=== PATIENT | male | born 1950 | race Caucasian/White ===

== ENCOUNTER 2020-09-20 12:55 | Observation (INO) | payer OTHER, MEDICARE ==
[~2020-09-20] VITALS: Ht 180.3 cm; Wt 99.1 kg
[2020-09-20] VITALS (13 sets, daily range): BP systolic 122–147; BP diastolic 65–90
[2020-09-20 13:43] LABS: BASOPHILS % (AUTO) 0.3 % (0-1); EOSINOPHILS # (AUTO) 0.1 X10'3 (0-0.9); EOSINOPHILS % (AUTO) 0.4 % (0-6); HEMOGLOBIN 13.4 g/dl (14.0-17.9); LYMPHOCYTES # (AUTO) 1.2 X10'3 (1.1-4.8); LYMPHOCYTES % (AUTO) 10.3 % (21-51); MEAN CORPUSCULAR HEMOGLOBIN 31.6 PG (27.0-31.0); MEAN CORPUSCULAR HGB CONC 33.5 g/dL (33.0-36.5); MEAN CORPUSCULAR VOLUME 94.3 FL (78-98); MONOCYTES # (AUTO) 0.7 X10'3 (0-0.9); MONOCYTES % (AUTO) 6.2 % (2-12); NEUTROPHILS # (AUTO) 9.9 X10'3 (1.8-7.7); NEUTROPHILS % (AUTO) 82.8 % (42-75); PLATELET COUNT 198 X10'3 (140-440); RED BLOOD COUNT 4.24 X10'6 (4.70-6.10); RED CELL DISTRIBUTION WIDTH 14.8 % (11.5-14.5); WHITE BLOOD COUNT 11.9 X10'3 (4.5-11.0)
[2020-09-20 13:59] LABS: ALANINE AMINOTRANSFERASE 42 U/L (12-78); ALBUMIN 3.4 G/DL (3.4-5.0); ALKALINE PHOSPHATASE 66 IU/L (46-116); ANION GAP 12 (8-16); ASPARTATE AMINO TRANSFERASE 26 U/L (10-37); BILIRUBIN,TOTAL 0.7 MG/DL (0.1-1.0); BLOOD UREA NITROGEN 16 MG/DL (7-18); BUN/CREATININE RATIO 16.2 (5.4-32.0); CALCIUM 8.6 MG/DL (8.5-10.1); CHLORIDE 104 MMOL/L (99-107); CREATININE 0.99 MG/DL (0.60-1.10); GLUCOSE 133 MG/DL (70-104); POTASSIUM 3.9 MMOL/L (3.5-5.1); SODIUM 140 MMOL/L (135-145); TOTAL CARBON DIOXIDE 23.9 MMOL/L (24-32); TOTAL PROTEIN 6.8 G/DL (6.4-8.2); eGFR 75 ML/MIN
[2020-09-20] MEDS ORDERED: ondansetron/PF 4mg/2ml inj IV ONE (14:05)
[2020-09-20] MEDS ORDERED: morphine 4 MG/ML inj SYRINge IV PRN ×2 (14:05→16:35)
--- NOTE | 2020-09-20 14:14 | NUR ---
TO CT VIA [facility]
[2020-09-20 14:15] LABS: LIPASE 126 U/L (73-393)
[2020-09-20 14:22] LABS: CLARITY,URINE CLEAR (Clear); COLOR,URINE YELLOW (Yellow); GLUCOSE, URINE NEGATIVE (Neg); KETONES,URINE NEGATIVE (Neg); LEUKOCYTE ESTERASE ,URINE NEGATIVE (Neg); NITRITES, URINE NEGATIVE (Neg); OCCULT BLOOD,URINE TRACE-INTACT (Neg); PROTEIN,URINE NEGATIVE (Neg); UROBILINOGEN,URINE 0.2 E.U/dL (0.2-1.0)
[2020-09-20] MEDS ORDERED: ALLO300T2 PO (14:22)
[2020-09-20] MEDS ORDERED: ALOG25TA PO (14:22)
--- NOTE | 2020-09-20 14:23 | NUR ---
back from ct
[2020-09-20 14:29] LABS: UA COLLECTION TYPE URINAL
[2020-09-20 14:33] LABS: BACTERIA,URINE FEW /HPF (Neg); SQUAMOUS EPITHELIAL CELL,UR FEW /LPF (FEW); WBC,URINE 0-4 /HPF (0-4)
[2020-09-20] MEDS ORDERED: IPRA3AMP31 IH (14:38)
[2020-09-20] MEDS ORDERED: piperacillin/tazo 3.375gm/50ml 50 ML IV ONE (15:10)
[2020-09-20 15:33] LABS: OCCULT BLOOD STOOL NEGATIVE (Neg)
--- NOTE | 2020-09-20 16:09 | NUR ---
ODALYS [phone]
--- NOTE | 2020-09-20 16:10 | NUR ---
HALIE FREEMAN [phone]
[2020-09-20] MEDS ORDERED: morphine 2 MG/ML inj. syringe IV PRN (16:35)
[2020-09-20] MEDS ORDERED: meperidine/PF 25mg/ml syringe IV PRN ×3 (16:35)
[2020-09-20] MEDS ORDERED: ondansetron/PF 4mg/2ml inj IV PRN ×2 (16:35→19:15)
[2020-09-20] MEDS ORDERED: proCHLORperazine 10 MG/2 ml inj IV PRN (16:35)
[2020-09-20] MEDS ORDERED: ringers solution, lacted 1,000 ML IV SCH (16:35)
[2020-09-20] MEDS ORDERED: BUPIVAcaine/PF 2.5 mg/ml (0.25%) 30ml vial ONE (17:24)
[2020-09-20] MEDS ORDERED: LIDOcaine 1% 30ml preserv. free vial ONE (17:24)
[2020-09-20] MEDS ORDERED: HYDROcodone/acetaminophen 10/325mg tab PO PRN (19:15)
--- NOTE | 2020-09-20 19:17 | NUR ---
Received from OR via SURGICAL BED , accompanied by Anesthesiologist BUCK and report given by Anesthesiolgist. PATIENT WITH 3 ABDOMINAL LAP SITES PRESENT AND A DANITZA DRAIN . SEROSANGUENOUS DRAINAGE PRESENT.. VSS AND DENIES PAIN AT THIS TIME. 20G PIV IN RIGHT UE RUNNING LR AT 100. 10L MASK ON WITH 100% SATURATIONS. Addendum: 09/20/20 at 4 by Mary Michael RN, RN Amended: Links added.
[2020-09-20] MEDS ORDERED: ipratropium/albuterol 3ml nebule IH PRN (19:20)
--- NOTE | 2020-09-20 19:57 | NUR ---
Received report from MAKENNA Bernal. Awaiting arrival to the floor.
--- NOTE | 2020-09-20 19:57 | NUR ---
134 BLOOD GLUCOSE Addendum: 09/20/20 at 1956 by Mary Michale RN RN Amended: Links added.
[2020-09-21] VITALS: BP 132/84
[2020-09-21] MEDS: Potassium Cl inj 20 MEQ in ringers solution, lacted 1,000 ML IV SCH ×2 (00:29→05:09)
[2020-09-21] MEDS: HYDROcodone/acetaminophen 5mg/325mg tablet PO PRN ×2 (00:30→05:30)
[2020-09-21 04:00] VITALS: BP 128/65
--- NOTE | 2020-09-21 06:56 | NUR ---
Problems reprioritized. Patient report given, questions answered & plan of care reviewed with MAKENNA Llamas.
[2020-09-21 07:00] VITALS: BP 142/66
[2020-09-21] MEDS ORDERED: albuterol 2.5 MG/3 ML nebule NEB SCH (07:00)
--- NOTE | 2020-09-21 07:09 | NUR ---
Patient in room [facility] 357. I have received report from Kim MENSAH and had the opportunity to ask questions and assume patient care.
[2020-09-21] MEDS ORDERED: HYDR-3964 PO (07:58)
[2020-09-21] MEDS ORDERED: allopurinol 300 MG tablet PO SCH (08:00)
[2020-09-21] MEDS ORDERED: linagliptin 5mg tablet PO SCH (08:00)
[2020-09-21] MEDS ORDERED: enoxaparin 40mg/0.4ml syringe SQ SCH (08:00)
--- NOTE | 2020-09-21 10:40 | NUR ---
Patients discharge instructions reviewed with patient and patient verbalized understanding. Patients IV dc'd cannula intact. Patient states he has all his belongings. Patient was walked to front of hospital by Fe Webb to his and her vehicle.
== END 2020-09-21 10:45 | disposition home or self-care (01) ==
LOC: ER 12:56 → SUR 3N 19:15
PROVIDERS: ADMIT Surgery; ATTEND Surgery
DX: K35.80 Unspecified acute appendicitis (principal); R10.9 Unspecified abdominal pain; Z20.822 Contact with and (suspected) exposure to COVID-19; K57.30 Diverticulosis of large intestine without perforation or abscess without bleeding; E11.9 Type 2 diabetes mellitus without complications; J44.9 Chronic obstructive pulmonary disease, unspecified; K76.0 Fatty (change of) liver, not elsewhere classified; I10 Essential (primary) hypertension; E66.9 Obesity, unspecified
CPT/HCPCS: 36415; 44970; 71045; 74176; 80053; 81001; 82272; 82948; 83690; 83735; 83880; 84484; 85025; 87081; 87635; 93005; 93306; 94640; 94760; 96365; 96372; 96375; 99285; C9803; G0378; J2001; J2270; J2405; J2543; J3480; J3490; J7030; J7120; S2900; A4215; A4618; J1650

== ENCOUNTER 2021-03-25 08:38 | Observation (INO) | payer OTHER, MEDICARE ==
[~2021-03-25] VITALS: Ht 182.9 cm; Wt 109.0 kg
[~2021-03-25 08:38] MED LIST: ALLO300T2 PO; ALOG25TA PO; HYDR-3964 PO; IPRA3AMP31 IH
--- NOTE | 2021-03-25 08:52 | NUR ---
PT HAS GIVEN PERMISSION TO SHARE STATUS INFO WITH ALLYSON AMBROSE AND JAVIER BUTLER.
[2021-03-25 09:08] LABS: BASOPHILS # (AUTO) 0.1 X10'3 (0-0.2); BASOPHILS % (AUTO) 1.1 % (0-1); EOSINOPHILS # (AUTO) 0.3 X10'3 (0-0.9); EOSINOPHILS % (AUTO) 3.2 % (0-6); HEMATOCRIT 39.1 % (42.0-52.0); HEMOGLOBIN 13.3 g/dl (14.0-17.9); LYMPHOCYTES # (AUTO) 2.3 X10'3 (1.1-4.8); LYMPHOCYTES % (AUTO) 25.2 % (21-51); MEAN CORPUSCULAR HEMOGLOBIN 32.9 PG (27.0-31.0); MEAN CORPUSCULAR HGB CONC 34.1 g/dL (33.0-36.5); MEAN CORPUSCULAR VOLUME 96.4 FL (78-98); MEAN PLATELET VOLUME 7.5 FL (7.4-10.4); MONOCYTES # (AUTO) 0.7 X10'3 (0-0.9); NEUTROPHILS # (AUTO) 5.8 X10'3 (1.8-7.7); NEUTROPHILS % (AUTO) 62.5 % (42-75); PLATELET COUNT 251 X10'3 (140-440); RED BLOOD COUNT 4.06 X10'6 (4.70-6.10); RED CELL DISTRIBUTION WIDTH 14.4 % (11.5-14.5); WHITE BLOOD COUNT 9.2 X10'3 (4.5-11.0)
[2021-03-25 09:13] LABS: PARTIAL THROMBOPLASTIN TIME 26 SECONDS (22-32)
[2021-03-25 09:21] LABS: ALANINE AMINOTRANSFERASE 62 U/L (12-78); ALBUMIN 4.1 G/DL (3.4-5.0); ALBUMIN/GLOBULIN RATIO 1.2 (1.1-1.5); ALKALINE PHOSPHATASE 67 IU/L (46-116); ANION GAP 9 (8-16); ASPARTATE AMINO TRANSFERASE 43 U/L (10-37); BILIRUBIN,TOTAL 0.8 MG/DL (0.1-1.0); BLOOD UREA NITROGEN 16 MG/DL (7-18); BUN/CREATININE RATIO 16.3 (5.4-32.0); CALCIUM 8.4 MG/DL (8.5-10.1); CHLORIDE 104 MMOL/L (99-107); CREATININE 0.98 MG/DL (0.60-1.10); GLUCOSE 163 MG/DL (70-104); POTASSIUM 4.1 MMOL/L (3.5-5.1); SODIUM 137 MMOL/L (135-145); TOTAL CARBON DIOXIDE 23.9 MMOL/L (24-32); TOTAL PROTEIN 7.6 G/DL (6.4-8.2); eGFR 76 ML/MIN
--- NOTE | 2021-03-25 09:32 | NUR ---
TELE NEURO IN PROGRESS
[2021-03-25] MEDS ORDERED: iohexol 350MG/ML 100ml bottle IV ONE (09:40)
[2021-03-25] MEDS ORDERED: potassium Cl 20 mEq SR tablet PO PRN ×2 (10:00)
[2021-03-25] MEDS ORDERED: magnesium Cl slow-release 64mg tablet PO PRN (10:00)
[2021-03-25] MEDS ORDERED: PERFLUTREN PROTEIN-A MICROSPHR (Optison) 0.22 MG/ML 3ML VIAL IV ONE (10:00)
[2021-03-25] MEDS ORDERED: magnesium 4gm in 100ml NS 100 ML IV PRN (10:00)
[2021-03-25] MEDS ORDERED: ondansetron/PF 4mg/2ml inj IV PRN (10:00)
[2021-03-25] MEDS ORDERED: potassium CL 10mEq/100ml bag 100 ML IV PRN (10:00)
[2021-03-25] MEDS ORDERED: acetaminophen 325mg tablet PO PRN (10:00)
[2021-03-25] MEDS ORDERED: magnesium 2GM in 50ml NS 50 ML IV PRN (10:00)
[2021-03-25 10:42] LABS: HEMOGLOBIN A1C 6.9 % (4.5-6.2)
[2021-03-25 10:43] LABS: CHOL/HDL RATIO 5.7 (0.00-4.99); CHOLESTEROL 178 MG/DL (0-200); HDL CHOLESTEROL 31 MG/DL (35-60); LDL CHOLESTEROL 80 MG/DL (50-100); MAGNESIUM 2.1 MG/DL (1.5-2.4); TRIGLYCERIDES 418 MG/DL (20-135)
[2021-03-25] MEDS ORDERED: ALPR0.5T8 PO (11:34)
[2021-03-25] MEDS ORDERED: CYCL-1 PO (11:34)
[2021-03-25] MEDS ORDERED: LOSA25TA96 PO (11:35)
[2021-03-25] MEDS: K and/or MAG REPLACEMENT MC SCH (20:00)
[2021-03-26] VITALS (7 sets, daily range): BP systolic 117–193; BP diastolic 67–84
[2021-03-26 06:09] LABS: BASOPHILS # (AUTO) 0.1 X10'3 (0-0.2); EOSINOPHILS # (AUTO) 0.3 X10'3 (0-0.9); EOSINOPHILS % (AUTO) 4.1 % (0-6); HEMATOCRIT 35.6 % (42.0-52.0); HEMOGLOBIN 12.4 g/dl (14.0-17.9); LYMPHOCYTES # (AUTO) 1.9 X10'3 (1.1-4.8); LYMPHOCYTES % (AUTO) 23.8 % (21-51); MEAN CORPUSCULAR HEMOGLOBIN 33.1 PG (27.0-31.0); MEAN CORPUSCULAR HGB CONC 34.8 g/dL (33.0-36.5); MEAN PLATELET VOLUME 7.4 FL (7.4-10.4); MONOCYTES # (AUTO) 0.6 X10'3 (0-0.9); MONOCYTES % (AUTO) 6.9 % (2-12); NEUTROPHILS # (AUTO) 5.2 X10'3 (1.8-7.7); NEUTROPHILS % (AUTO) 64.2 % (42-75); PLATELET COUNT 233 X10'3 (140-440); RED BLOOD COUNT 3.74 X10'6 (4.70-6.10); RED CELL DISTRIBUTION WIDTH 14.1 % (11.5-14.5); WHITE BLOOD COUNT 8.1 X10'3 (4.5-11.0)
[2021-03-26 06:22] LABS: ALBUMIN 3.6 G/DL (3.4-5.0); ANION GAP 10 (8-16); BLOOD UREA NITROGEN 16 MG/DL (7-18); BUN/CREATININE RATIO 14.7 (5.4-32.0); CALCIUM 8.7 MG/DL (8.5-10.1); CHLORIDE 105 MMOL/L (99-107); CHOL/HDL RATIO 5.8 (0.00-4.99); CHOLESTEROL 167 MG/DL (0-200); CREATININE 1.09 MG/DL (0.60-1.10); GLUCOSE 151 MG/DL (70-104); HDL CHOLESTEROL 29 MG/DL (35-60); LDL CHOLESTEROL 72 MG/DL (50-100); MAGNESIUM 2.2 MG/DL (1.5-2.4); POTASSIUM 4.3 MMOL/L (3.5-5.1); SODIUM 139 MMOL/L (135-145); TOTAL CARBON DIOXIDE 23.8 MMOL/L (24-32); TRIGLYCERIDES 383 MG/DL (20-135); eGFR 67 ML/MIN
--- NOTE | 2021-03-26 06:37 | NUR ---
Patient in room PCU 3021. I have received report from MAKENNA Brink and had the opportunity to ask questions and assume patient care.
[2021-03-26] MEDS: K and/or MAG REPLACEMENT MC SCH (08:00)
[2021-03-26] MEDS ORDERED: atorvastatin 20mg tablet PO SCH (10:50)
[2021-03-26] MEDS ORDERED: clopidogrel 300mg tablet PO ONE (10:50)
[2021-03-26] MEDS ORDERED: ipratropium/albuterol 3ml nebule IH PRN (12:00)
[2021-03-26] MEDS ORDERED: losartan 25mg tablet PO SCH (12:00)
[2021-03-26] MEDS ORDERED: allopurinol 300 MG tablet PO SCH (12:00)
--- NOTE | 2021-03-26 12:15 | NUR ---
PAGER ID: [phone] MESSAGE: Popeye Avalos#21A-Recommendations neuro consult for pt:continue 81 daily If < 50% stenosis of cervical ICAs, would given Plavix 300 x1 then 75 daily x3 weeks, Atorvastatin 80, then tailor daily dose to LDL < 70 goal.Please advise. Vika U
--- NOTE | 2021-03-26 16:33 | NUR ---
called Dr Mendoza MRI results are here, pt wants to go home.
--- NOTE | 2021-03-26 16:49 | NUR ---
PAGER ID: [phone] MESSAGE: Popeye sauceda# Pt's MRI negative, he wants to go, DC papers ready. need prescription for him? he is a [facility] pt. Thank you. Vika Manley [phone]
--- NOTE | 2021-03-26 17:14 | NUR ---
Patient refused accucheck
--- NOTE | 2021-03-26 17:51 | NUR ---
pt DC to home with . pt is A & O x4 and in no apparent distress. pt and spouse verbalize understanding of all DC orders and the importance of following up with neurologist and PCP. Pt educated on DM, HTN and A1C 6.9. Pt knows how important it is to take prescribed medication Plavix and cholesterol meds. pt packed all of his belongings and got dressed without help. Pt 's IV cath removed intact. pt declined a wheelchair and decided to walk to the front accompanied by staff where her took him home.
--- NOTE | 2021-03-26 18:45 | NUR ---
Student documentation: I have reviewed and agree with all interventions, assessments performed and documented by Yazmin carbajal [employer] student.
[2021-03-27] MEDS ORDERED: clopidogrel 75mg tablet PO SCH (08:00)
[2021-03-27] MEDS ORDERED: ATOR80TA PO (09:10)
[2021-03-27] MEDS ORDERED: CLOP75TA15 PO (09:10)
== END 2021-03-26 17:45 | disposition home or self-care (01) ==
LOC: ER 08:38 → ED HOLD 10:16 → PCU 3S 03-26 00:10
PROVIDERS: ADMIT Internal Medicine; ATTEND Internal Medicine
DX: G45.9 Transient cerebral ischemic attack, unspecified (principal); E11.9 Type 2 diabetes mellitus without complications; M10.9 Gout, unspecified; N40.0 Benign prostatic hyperplasia without lower urinary tract symptoms; E78.00 Pure hypercholesterolemia, unspecified; Z79.899 Other long term (current) drug therapy; Z91.040 Latex allergy status; Z88.0 Allergy status to penicillin; Z86.16 Personal history of COVID-19; Z98.1 Arthrodesis status
CPT/HCPCS: 36415; 70450; 70496; 70498; 70551; 71045; 80048; 80053; 80061; 82948; 83036; 83735; 85025; 85610; 85730; 86885; 86900; 86901; 87081; 92508; 92526; 92616; 93005; 93306; 97161; 97530; 99285; G0378; Q9967